=== PATIENT | female | born 1985 | race African-American/Black ===

== ENCOUNTER 2017-04-21 03:42 | Emergency (ER) | payer MEDICARE, MEDICAID ==
[~2017-04-21] VITALS: Ht 162.6 cm; Wt 136.5 kg
[~2017-04-21 03:42] MED LIST: PEPCID40 MG PO; TRAMADOL HCL50 MG ORAL
[2017-04-21] MEDS ORDERED: LEVOTHYROXINE125 MCG ORAL (03:54)
[2017-04-21] MEDS: Lidocaine 2% Visc 15ml soln ORAL ONE ×2 (04:00→04:18)
[2017-04-21] MEDS ORDERED: Mylanta II UD 30ml ORAL ONE (04:00)
[2017-04-21] MEDS ORDERED: Dicyclomine HCl 10mg/5ml oral soln ORAL ONE (04:00)
[2017-04-21] MEDS ORDERED: Gastrograffin 30ml ORAL ONE (04:13)
[2017-04-21 04:25] LABS: APPEARANCE,URINE CLEAR; KETONES,URINE NEGATIVE (NEGATIVE); LEUKOCYTE ESTERASE ,URINE NEGATIVE (NEGATIVE); NITRITE,URINE NEGATIVE (NEGATIVE); PH,URINE 7 (4.5-8.0); PROTEIN,URINE NEGATIVE (NEGATIVE); UROBILINOGEN,URINE 1 MG/DL (0.0-1.0)
--- NOTE | 2017-04-21 05:38 | Emergency Room Report ---
History of Present Illness General Chief Complaint: Abdominal Pain Source: Patient (Hailey Xiong M.D.) Present Illness HPI 31-year-old female history of gastric bypass, high-grade bowel obstruction with reconstruction surgery one year ago, presenting with nausea vomiting and abdominal pain for 2 days. Patient states that abdominal pain is upper, points epigastric area, patient has had more than 5 episodes of nonbilious vomiting with small streaks of blood the last 2 days. Patient states that she has also had intermittent diarrhea. Patient cannot recall if she is passing gas. Has not had bowel movement today. Patient states that during her last high-grade bowel obstruction she presented with syncope but had no abdominal pain. Patient also states that she has had to be on TPN multiple times, has had multiple PICC lines, the last PICC line was DC'd 6 weeks ago Denies any fever or chills (Hailey Xiong M.D.) Allergies: Coded Allergies: PROCHLORPERAZINE (Unverified Allergy, Severe, Shortness of Breath, 01/07/15 ) AMOXICILLIN (Verified Allergy, Mild, Rash, 01/07/15) METOCLOPRAMIDE (Verified Allergy, Mild, Rash, 01/07/15) Patient History Past Medical History: see triage record Past Surgical History: none Pertinent Family History: none Last Menstrual Period: Mar Reviewed Nursing Documentation: PMH: Agreed, PSxH: Agreed (Hailey Xiong M.D. ) Nursing Documentation-PMH Hx Gastrointestinal Problems: Yes - GASTRIC BYPASS IN 2005,REVISION A YEAR AGO (Hailey Xiong M.D.) Review of Systems All Other Systems: negative except mentioned in HPI (Hailey Xiong M.D.) Physical Exam Vital Signs Date Time Temp Pulse Resp B/P (MAP) Pulse Ox O2 Delivery O2 Flow Rate FiO2 04/21/17 03:48 98.2 104 18 157/100 98 Room Air Sp02 EP Interpretation: reviewed, normal General Appearance: normal inspection, well appearing, alert, GCS 15, non-toxic , mild distress Head: normocephalic, atraumatic Eyes: bilateral eye normal inspection, bilateral eye PERRL, bilateral eye EOMI ENT: normal ENT inspection, normal pharynx, normal voice, moist mucus membranes Neck: normal inspection, full range of motion, supple Respiratory: normal inspection, lungs clear, normal breath sounds, no respiratory distress, no retraction, no wheezing, speaking full sentences, chest symmetrical Cardiovascular #1: normal inspection, regular rate, rhythm, no edema, normal capillary refill Cardiovascular #2: 2+ radial (R), 2+ radial (L) Gastrointestinal: soft, non-distended, no guarding, other - Tenderness to epigastric area and mid abdomen, bowel sounds are normal Musculoskeletal: normal inspection, back normal, normal range of motion, non- tender Neurologic: normal inspection, alert, oriented x3, responsive, motor strength/ tone normal, sensory intact, normal gait, speech normal Psychiatric: normal inspection, judgement/insight normal, memory normal Skin: normal inspection, normal color, no rash, warm/dry, well hydrated, normal turgor (Hailey Xiong M.D.) Medical Decision Making Diagnostic Impression: Primary Impression: Abdominal pain ER Course 31-year-old female with abdominal pain Differential Diagnosis: Gastritis, gastroenteritis, cholecystitis, appendicitis, diverticulitis, SBO, UTI/pyelo Plan: Basic labs, ua Pepcid, maalox, pain control, IVF ZOFRAN CT abdopelvis ER course: LAB UNREMARKABLE except for mild anemia Disposition: Signed out patient to Dr. Leary 31-year-old female, history of gastric bypass, SBO, presenting with abdominal pain Pending labs Pending CT Please note that this Emergency Department Report was dictated using [employer] operations superintendent technology software, occasionally this can lead to erroneous entry secondary to interpretation by the dictation equipment (Hailey Xinog M.D.) ER Course Patient was endorsed to me by Dr. Xiong Patient was noted to have some emesis And epigastric pain. Patient had been given Zofran as well as H2 mita previously. The patient was given additional Haldol for nausea. Laboratory studies were unremarkable with a normal white blood count. The patient remains the same hemoglobin as per previous laboratory testing from [address] of the abdomen pelvis was ordered with IV contrast. The patient was advised risk benefits alternatives of leaving AGAINST MEDICAL ADVICE and he indicated understanding and all questions are answered patient still continued want to leave and signed AGAINST MEDICAL ADVICE. Despite risks including but not limited to disability and worsening of current lifestyle.Patient refused to sign. CT results were still pending at the time of AMA, and patient declined to wait for the results. (Ghassan Leary) CT/MRI/US Diagnostic Results CT/MRI/US Diagnostic Results : Imaging Test Ordered: CT abdopelvis Impression Findings: There is mild atelectasis in the lung bases. Postsurgical changes of the stomach are present. There is mild fatty infiltration of the liver. The adrenal glands, kidneys, spleen and pancreas are grossly unremarkable. No CT evident gallstones are seen. The small bowel loops are normal in caliber. There is no appendicitis. There is no free intraperitoneal fluid or air. Bladder is grossly unremarkable. Uterus is grossly unremarkable. There is a tiny fat-containing paraumbilical hernia. Mild degenerative changes of the spine are seen. A right L5 pars intra-articularis defect is noted. Impression: Limited examination without oral contrast. Postsurgical changes of apparent gastric bypass. No evidence of mechanical bowel obstruction. Mild fatty infiltration of the liver. Normal appendix. Other findings described above. (Hailey Xiong M.D.) Last Vital Signs Date Time Temp Pulse Resp B/P (MAP) Pulse Ox O2 Delivery O2 Flow Rate FiO2 04/21/17 03:48 98.2 104 18 157/100 98 Room Air (Hailey Xiong M.D.) Status: improved (Ghassan Leary) Disposition: AGAINST MEDICAL ADVICE Condition: Stable Referrals: NOT CHOSEN BOBBY/,REFERRING (PCP) Hailey Xiong M.D. Apr 21, 2017 05:38 Ghassan Leary Apr 21, 2017 08:09
[2017-04-21 05:47] VITALS: BP 134/112
[2017-04-21 06:12] LABS: BASOPHILS % (AUTO) 0.9 % (0.0-2.0); EOSINOPHILS % (AUTO) 1.3 % (0.0-3.0); LYMPHOCYTES % (AUTO) 20.5 % (20.0-45.0); MEAN CORPUSCULAR HEMOGLOBIN 31.9 PG (27.0-31.0); MEAN CORPUSCULAR HGB CONC 31.3 G/DL (32.0-36.0); MEAN CORPUSCULAR VOLUME 102 FL (80-99); MEAN PLATELET VOLUME 8.2 FL (6.5-10.1); MONOCYTES % (AUTO) 6.6 % (1.0-10.0); NEUTROPHILS % (AUTO) 70.7 % (45.0-75.0); PLATELET COUNT 244 K/UL (150-450); RED BLOOD COUNT 3.58 M/UL (4.20-5.40); RED CELL DISTRIBUTION WIDTH 15.2 % (11.6-14.8); WHITE BLOOD COUNT 10.5 K/UL (4.8-10.8)
[2017-04-21 06:23] LABS: ALANINE AMINOTRANSFERASE 11 U/L (3-33); ALBUMIN/GLOBULIN RATIO 1.3 (1.0-2.7); ANION GAP 16 (5-15); ASPARTATE AMINO TRANSFERASE 14 U/L (5-40); CALCIUM 9.1 mg/dL (8.6-10.2); CARBON DIOXIDE 24 mEQ/L (20-30); CHLORIDE 102 mEQ/L (98-107); CREATININE 0.8 mg/dL (0.5-0.9); GLOMERULAR FILTRATION RATE > 60 mL/min (>60); HEMOLYSIS 12; LIPASE 18 U/L (< 60); SODIUM 142 mEQ/L (135-145); TOTAL PROTEIN 6.9 g/dL (6.6-8.7)
[2017-04-21] MEDS ORDERED: Haloperidol 5mg/ml Inj IM ONE (06:45)
[2017-04-21 06:52] VITALS: BP 152/95
[2017-04-21] MEDS ORDERED: DiphenhydrAMINE 50mg/ml Inj IVP ONE (08:00)
[2017-04-21 08:01] VITALS: BP 149/103
[2017-04-21 08:05] VITALS: BP 149/103
--- NOTE | 2017-04-21 09:12 | Diagnostic Imaging Report ---
Indication: Abdominal pain Technique: CT of the abdomen and pelvis utilizing automated exposure control with intravenous contrast. Venous scanning performed. CT dose: Total DLP 1112 mGycm; CTDI vol 19.8 mGy Comparison: 01/07/15 Findings: There is mild atelectasis in the lung bases. Postsurgical changes of the stomach are present. There is mild fatty infiltration of the liver. The adrenal glands, kidneys, spleen and pancreas are grossly unremarkable. No CT evident gallstones are seen. The small bowel loops are normal in caliber. There is no appendicitis. There is no free intraperitoneal fluid or air. Bladder is grossly unremarkable. Uterus is grossly unremarkable. There is a tiny fat-containing paraumbilical hernia. Mild degenerative changes of the spine are seen. A right L5 pars intra-articularis defect is noted. Impression: Limited examination without oral contrast. Postsurgical changes of apparent gastric bypass. No evidence of mechanical bowel obstruction. Mild fatty infiltration of the liver. Normal appendix. Other findings described above. The CT scanner at [facility] is accredited by the [employer] and the scans are performed using protocols designed to limit radiation exposure to as low as reasonably achievable to attain images of sufficient resolution adequate for diagnostic evaluation.
== END 2017-04-21 08:18 | disposition left against medical advice (07) ==
LOC: EMR 04:15
DX: R10.9 Unspecified abdominal pain (principal); R11.2 Nausea with vomiting, unspecified; Z88.0 Allergy status to penicillin; Z88.8 Allergy status to other drugs, medicaments and biological substances; Z98.84 Bariatric surgery status
CPT/HCPCS: 36415; 74177; 80053; 81003; 81025; 83690; 85025; 96372; 96374; 96375; 99284; J1630; J2405; Q9967; S0028